=== PATIENT | female | born 1960 | race American Indian/Alaskan Native ===

== ENCOUNTER 2019-02-26 12:30 | Emergency (ER) | payer MEDICAID ==
[2019-02-26 13:00] VITALS: BP 140/87
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
[2019-02-26] MEDS ORDERED: TORADOL IM ONE (14:21)
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
== END 2019-02-26 14:48 | disposition home or self-care (01) ==
LOC: ED 12:30
DX: S16.1XXA Strain of muscle, fascia and tendon at neck level, initial encounter (principal); I10 Essential (primary) hypertension; K21.0 Gastro-esophageal reflux disease with esophagitis; M19.90 Unspecified osteoarthritis, unspecified site; F17.200 Nicotine dependence, unspecified, uncomplicated; Z90.49 Acquired absence of other specified parts of digestive tract; Z79.899 Other long term (current) drug therapy; Z98.890 Other specified postprocedural states; V09.9XXA Pedestrian injured in unspecified transport accident, initial encounter; Y93.89 Activity, other specified; Y92.488 Other paved roadways as the place of occurrence of the external cause; Y99.8 Other external cause status
CPT/HCPCS: 71101; 72040; 73030; 96372; 99283; J1885

== ENCOUNTER 2021-07-20 08:59 | Outpatient (CLI) | payer OTHER ==
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
== END 2021-07-20 09:00 | disposition home or self-care (01) ==
LOC: XRAY 08:59
PROVIDERS: ATTEND Internal Medicine
DX: M47.897 Other spondylosis, lumbosacral region (principal); M17.0 Bilateral primary osteoarthritis of knee
CPT/HCPCS: 72100; 73565